=== PATIENT | male | born 1985 | race Caucasian/White ===

== ENCOUNTER 2022-05-09 15:28 | Emergency (ER) | payer OTHER ==
[~2022-05-09 15:28] MED LIST: IBUPROFEN800 MG PO; KEFLEX CAP 500500 MG PO; NORCO 5-325 TA1 EACH PO; NORCO 7.5-3251 EACH PO; PRINIVIL20 MG PO; SEROQUEL400 MG PO; ULTRAM50 MG PO; VITAMIN C 500500 MG PO; VITAMIN D250000 UNIT PO
[2022-05-09 16:40] LABS: HEMOGLOBIN 16.8 gm/dl (14.0-17.5); RED BLOOD COUNT 5.21 M/UL (4.20-5.50); WHITE BLOOD COUNT 13.2 K/UL (4.5-11.0)
[2022-05-09 17:10] LABS: BUN/CREATININE RATIO 21 (0-10)
== END 2022-05-10 12:24 | disposition short-term general hospital (02) ==
LOC: ER1 15:28
PROVIDERS: Family Medicine
DX: R45.851 Suicidal ideations (principal); F17.200 Nicotine dependence, unspecified, uncomplicated; Z20.822 Contact with and (suspected) exposure to COVID-19
CPT/HCPCS: 80053; 80307; 81001; 85025; 99285; G0480; U0002